=== PATIENT | male | born 1980 | race Hispanic/Latino ===

== ENCOUNTER 2019-06-16 02:07 | Emergency (ER) | payer SELFPAY ==
[2019-06-16] MEDS ORDERED: Famotidine 20 MG TAB ONE (02:29)
[2019-06-16] MEDS ORDERED: predniSONE 20 MG TAB ONE (02:29)
[2019-06-16] MEDS ORDERED: diphenhydrAMINE 25 MG CAP ONE (02:29)
== END 2019-06-16 03:05 | disposition home or self-care (01) ==
LOC: ERS 02:07
DX: L50.0 Allergic urticaria (principal)
CPT/HCPCS: 99282; J7512; Q0163

== ENCOUNTER 2019-06-17 00:57 | Emergency (ER) | payer SELFPAY ==
[2019-06-17] MEDS ORDERED: diphenhydrAMINE 50 MG/ML VIAL ONE (01:22)
[2019-06-17] MEDS ORDERED: Famotidine/PF 20 mg/2ml Vial ONE (01:26)
[2019-06-17] MEDS ORDERED: Famotidine/PF 20 mg/2ml Vial SLOW IVP SCH (01:30)
[2019-06-17] MEDS ORDERED: Dexamethasone 10 MG/ML VIAL ONE (02:09)
[2019-06-17] MEDS ORDERED: Dexamethasone 4 MG TAB ONE (02:12)
== END 2019-06-17 03:45 | disposition home or self-care (01) ==
LOC: ERS 00:57
DX: L50.0 Allergic urticaria (principal)
CPT/HCPCS: 96374; 96375; J1100; J1200; J8540; S0028

== ENCOUNTER 2019-06-18 10:41 | Emergency (ER) | payer SELFPAY ==
[2019-06-18] MEDS ORDERED: Ondansetron PF 4 MG/2 ML Vial ONE ×2 (11:27→11:28)
[2019-06-18] MEDS ORDERED: Morphine 4 MG/ML VIAL ONE (11:27)
[2019-06-18 11:33] LABS: #Lymphocytes 2.5 thou/uL (1.20-3.40); #Monocytes 1.1 thou/uL (0.11-0.59); #Neutrophils 7.7 thou/uL (1.40-6.50); %Basophils 0.3 % (0.0-1.0); %Eosinophils 0.1 % (0.0-10.0); %Lymphocytes 22.3 % (21.0-51.0); %Monocytes 9.2 % (0.0-10.0); Hemoglobin 14.9 g/dL (14.0-18.0); Mean Corpuscular HGB CONC 34.4 g/dL (32.0-36.0); Mean Corpuscular Hemoglobin 30.4 pg (27.0-31.0); Mean Corpuscular Volume 88.3 fL (78.0-98.0); Mean Platelet Volume 6.7 fL (7.4-10.4); Platelet Count 250 thou/uL (130-400); White Blood Cell (WBC) Count 11.3 thou/uL (4.8-10.8)
[2019-06-18 11:37] LABS: Bilirubin Small (Negative); Blood, Urine Small (Negative); Glucose, Urine (Dipstick) Negative (Negative); Leukocyte Negative (Negative); Nitrite Negative (Negative); Protein, Urine (Dipstick) 100 mg/dL (Neg-Trace); Urobilinogen 0.2 mg/dL (Less than 2)
[2019-06-18 11:43] LABS: Clarity CLEAR (Clear)
[2019-06-18 11:45] LABS: Bacteria/HPF 1+ HPF (None Seen); RBC/HPF 0-3 HPF (0-3); Squamous Epithelial 0-3 HPF (0-3); WBC/HPF None Seen HPF (0-3)
[2019-06-18 11:47] LABS: ALT (SGPT) 26 U/L (8-55); AST (SGOT) 13 U/L (5-34); Albumin 4.2 g/dL (3.5-5.0); Alkaline Phosphatase 67 U/L (40-110); Anion Gap 13 mmol/L (10-20); BUN (Urea Nitrogen) 12 mg/dL (8.9-20.6); Bilirubin, Total 0.3 mg/dL (0.2-1.2); Calc. Creatinine Clearance 0 mL/min (70-130); Calcium 8.8 mg/dL (7.8-10.44); Carbon Dioxide 23 mmol/L (22-29); Chloride 104 mmol/L (98-107); Estimated GFR-MDRD Greater than 90; Globulin 2.5 g/dL (2.4-3.5); Glucose 115 mg/dL (70-105); Lipase 16 U/L (8-78); Potassium 3.4 mmol/L (3.5-5.1); Protein, Total 6.7 g/dL (6.0-8.3); Sodium 137 mmol/L (136-145)
--- NOTE | 2019-06-18 11:47 | CT ---
CT OF THE ABDOMEN AND PELVIS WITH IV CONTRAST INDICATION: Lower abdominal pain and vomiting COMPARISON: None FINDINGS: ABDOMEN: Lung bases: Clear Liver: No focal lesion. Gallbladder: Normal appearing. Pancreas: Normal. Adrenal glands: Normal. Spleen: Normal. Kidneys and ureters: Normal. No hydronephrosis. Vasculature: Normal. Lymph nodes:No lymphadenopathy. There are a few shotty appearing lymph nodes seen within the retroper itoneum. Free fluid in abdomen:No free fluid is evident. PELVIS: Small and large bowel: Normal Appendix:Normal Bladder: Decompressed Rectal and perirectal soft tissues:Normal. Reproductive structures: Normal. Free fluid in pelvis: No free fluid is evident. Lymphadenopathy pelvis: No lymphadenopathy is evident. Osseous structures: No acute osseous abnormality. No destructive osteolytic or osteoblastic lesion i s identified. Soft tissues:Normal. IMPRESSION: 1. No acute abnormality.
[2019-06-18] MEDS ORDERED: Lidocaine Viscous Sol 2% 15 ml UD Cup ONE (12:14)
[2019-06-18] MEDS ORDERED: Mag-Al 1200 mg/1200 mg/30 ML UDCUP ONE (12:14)
[2019-06-18] MEDS ORDERED: ISOVUE-370 76%-LOCM 1 ML ONE (12:22)
== END 2019-06-18 13:22 | disposition home or self-care (01) ==
LOC: ERS 10:41
DX: R10.31 Right lower quadrant pain (principal); R11.2 Nausea with vomiting, unspecified
CPT/HCPCS: 74177; 80053; 81003; 81015; 82550; 83690; 85025; 93005; 96361; 96374; 96375; J2270; J2405; Q9966

== ENCOUNTER 2019-08-20 00:18 | Emergency (ER) | payer SELFPAY ==
[2019-08-20] MEDS ORDERED: Ketorolac Tromethamine 30 MG/ML VIAL ONE (01:11)
== END 2019-08-20 01:25 | disposition home or self-care (01) ==
LOC: ERS 00:18
DX: K08.89 Other specified disorders of teeth and supporting structures (principal)
CPT/HCPCS: 96372; 99282; J1885

== ENCOUNTER 2021-02-22 08:24 | Emergency (ER) | payer SELFPAY ==
[2021-02-22] MEDS ORDERED: Acetaminophen 500 MG TAB ONE (08:46)
[2021-02-22] MEDS ORDERED: Dexamethasone 10 MG/ML VIAL ONE (08:47)
[2021-02-22] MEDS ORDERED: Ketorolac Tromethamine 30 MG/ML VIAL ONE (08:47)
[2021-02-22 08:57] LABS: #Lymphocytes 0.8 thou/uL (1.20-3.40); #Monocytes 0.2 thou/uL (0.11-0.59); %Basophils 0.4 % (0.0-1.0); %Lymphocytes 20.5 % (21.0-51.0); %Neutrophils 73.1 % (42.0-75.0); Hemoglobin 15.8 g/dL (14.0-18.0); Mean Corpuscular HGB CONC 35.3 g/dL (32.0-36.0); Mean Corpuscular Hemoglobin 31.3 pg (27.0-31.0); Mean Corpuscular Volume 88.7 fL (78.0-98.0); Mean Platelet Volume 6.7 fL (7.4-10.4); Platelet Count 126 thou/uL (130-400); RBC Distribution Width 12.3 % (11.5-14.5); Red Blood Cell (RBC) Count 5.04 mill/uL (4.70-6.10); White Blood Cell (WBC) Count 4.1 thou/uL (4.8-10.8)
[2021-02-22 09:19] LABS: CK (CPK) 91 U/L (30-200); Lipase 38 U/L (8-78)
[2021-02-22 10:03] LABS: SARS-CoV-2 NAA Rapid Test DETECTED (NotDetected)
[2021-02-22] MEDS ORDERED: Iopamidol-370 76% 500 ML 1 ML ONE (10:18)
[2021-02-22 10:35] LABS: Bacteria/HPF None Seen HPF (None Seen); Bilirubin Negative (Negative); Blood, Urine Trace (Negative); Clarity Clear (Clear); Glucose, Urine (Dipstick) Normal (Negative); Ketone, Urine Negative (Negative); Leukocyte Negative Leu/uL (Negative); Nitrite Negative (Negative); Protein, Urine (Dipstick) 20 mg/dL (Neg-Trace); RBC/HPF 0-3 HPF (0-3); Specific Gravity, Urine 1.011 (1.002-1.036); Squamous Epithelial None Seen HPF (0-3); Urobilinogen Normal mg/dL (Less than 2); WBC/HPF 0-3 HPF (0-3); pH, Urine 6.5 (5.0-9.0)
== END 2021-02-22 11:20 | disposition home or self-care (01) ==
LOC: ERS 08:24
DX: U07.1 COVID-19 (principal); J12.82 Pneumonia due to coronavirus disease 2019
CPT/HCPCS: 0240U; 36415; 71045; 71275; 81003; 81015; 82550; 83605; 83690; 84484; 85025; 85379; 87040; 93005; 96374; 96375; J1100; J1885; Q9967

== ENCOUNTER 2021-02-24 22:15 | Inpatient (IN) | payer SELFPAY ==
[2021-02-24] MEDS ORDERED: Acetaminophen 500 MG TAB ONE (22:22)
[2021-02-24] MEDS ORDERED: Ketorolac Tromethamine 30 MG/ML VIAL ONE (22:56)
[2021-02-24 23:12] LABS: Hemoglobin 14.5 g/dL (14.0-18.0); Mean Corpuscular HGB CONC 34.9 g/dL (32.0-36.0); RBC Distribution Width 12.6 % (11.5-14.5); Red Blood Cell (RBC) Count 4.68 mill/uL (4.70-6.10)
[2021-02-24 23:19] LABS: ALT (SGPT) 51 U/L (8-55); AST (SGOT) 30 U/L (5-34); Albumin 3.7 g/dL (3.5-5.0); Alkaline Phosphatase 62 U/L (40-110); Anion Gap 15 mmol/L (10-20); BUN (Urea Nitrogen) 11 mg/dL (8.9-20.6); Bilirubin, Total 0.5 mg/dL (0.2-1.2); Calc. Creatinine Clearance 0 mL/min (70-130); Carbon Dioxide 23 mmol/L (22-29); Chloride 100 mmol/L (98-107); Globulin 2.5 g/dL (2.4-3.5); Glucose 165 mg/dL (70-105); Potassium 3.8 mmol/L (3.5-5.1); Protein, Total 6.2 g/dL (6.0-8.3); Sodium 134 mmol/L (136-145)
[2021-02-24 23:23] LABS: CKMB 0.3 ng/mL (0-6.6)
[2021-02-24 23:28] LABS: Band 27 % (5-11); Lymphocytes 10 % (21-51); MDiff Complete? YES; Mean Platelet Volume 6.6 fL (7.4-10.4); Monocytes 3 % (0-10); Neutrophil 60 % (42-75); Platelet Count 177 thou/uL (130-400)
[2021-02-25 01:10] LABS: Bilirubin Negative (Negative); Blood, Urine Trace (Negative); Glucose, Urine (Dipstick) Negative (Negative); Ketone, Urine Negative (Negative); Leukocyte Negative (Negative); Nitrite Negative (Negative); Protein, Urine (Dipstick) 30 mg/dL (Neg-Trace); Urobilinogen 0.2 mg/dL (Less than 2)
[2021-02-25 01:11] LABS: Clarity Clear (Clear)
[2021-02-25 01:20] LABS: Bacteria/HPF None Seen HPF (None Seen); RBC/HPF 0-3 HPF (0-3); Squamous Epithelial 0-3 HPF (0-3); WBC/HPF 0-3 HPF (0-3)
[2021-02-25] MEDS ORDERED: Ondansetron ODT 4 MG TAB SL PRN (02:15)
[2021-02-25] MEDS ORDERED: Sodium Chloride 0.9% 1,000 ML IV SCH (02:15)
[2021-02-25] MEDS ORDERED: Ondansetron PF 4 MG/2 ML Vial IVP PRN (02:15)
[2021-02-25 02:18] LABS: Lactic Acid 0.8 mmol/L (0.5-2.2)
[2021-02-25] MEDS ORDERED: HYDROcodone/Acetaminophen 7.5/325 mg Tablet PO PRN (05:34)
[2021-02-25] MEDS: Acetaminophen 500 MG TAB PO PRN ×3 (05:47→19:45)
[2021-02-25] MEDS ORDERED: Guaifenesin DM 100-10/5 ML UDCUP PO PRN (07:31)
[2021-02-25] MEDS: cefTRIAXone\\ROCEPHIN 1 GM in Sodium Chloride 0.9% 100 ML IVPB SCH (07:56)
[2021-02-25] MEDS: Ascorbic Acid 500 mg Chewable Tablet PO SCH (07:56)
[2021-02-25] MEDS: Enoxaparin Sodium 40 MG/0.4 ML SYRINGE SC SCH (07:56)
[2021-02-25] MEDS: Zinc Sulfate 220 MG CAP PO SCH (07:56)
[2021-02-25] MEDS ORDERED: Albuterol 200 PUFF (6.7GM INHALER) INH PRN (08:27)
[2021-02-25] MEDS ORDERED: REMDESIVIR 200 MG in Sodium Chloride 0.9% 250 ML 210 ML IV SCH (08:30)
[2021-02-25] MEDS ORDERED: Azithromycin 500 MG in Sodium Chloride 0.9% 250 ML 250 ML IVPB SCH (09:00)
[2021-02-25 11:40] LABS: Hemoglobin 14.4 g/dL (14.0-18.0); Mean Corpuscular HGB CONC 34.8 g/dL (32.0-36.0); Mean Corpuscular Hemoglobin 31.5 pg (27.0-31.0); Mean Corpuscular Volume 90.5 fL (78.0-98.0); Mean Platelet Volume 6.4 fL (7.4-10.4); Platelet Count 172 thou/uL (130-400); RBC Distribution Width 12.5 % (11.5-14.5); Red Blood Cell (RBC) Count 4.56 mill/uL (4.70-6.10); White Blood Cell (WBC) Count 12.1 thou/uL (4.8-10.8)
[2021-02-25 11:58] LABS: Band 31 % (5-11); Lymphocytes 8 % (21-51); MDiff Complete? YES; Neutrophil 61 % (42-75); Platelet Morphology Comment Appears Adequate; RBC Morphology Normal
[2021-02-26] MEDS: Acetaminophen 500 MG TAB PO PRN ×3 (00:15→21:15)
[2021-02-26 04:02] LABS: #Lymphocytes 0.8 thou/uL (1.20-3.40); #Monocytes 0.2 thou/uL (0.11-0.59); #Neutrophils 11.7 thou/uL (1.40-6.50); %Basophils 0.1 % (0.0-1.0); %Monocytes 1.6 % (0.0-10.0); %Neutrophils 92.3 % (42.0-75.0); Mean Corpuscular HGB CONC 35.1 g/dL (32.0-36.0); Mean Corpuscular Hemoglobin 31.7 pg (27.0-31.0); Mean Corpuscular Volume 90.4 fL (78.0-98.0); Mean Platelet Volume 6.4 fL (7.4-10.4); Platelet Count 202 thou/uL (130-400); RBC Distribution Width 12.5 % (11.5-14.5); Red Blood Cell (RBC) Count 4.42 mill/uL (4.70-6.10); White Blood Cell (WBC) Count 12.7 thou/uL (4.8-10.8)
[2021-02-26 04:20] LABS: Anion Gap 13 mmol/L (10-20); BUN (Urea Nitrogen) 8 mg/dL (8.9-20.6); Calc. Creatinine Clearance 234 mL/min (70-130); Calcium 8.4 mg/dL (7.8-10.44); Carbon Dioxide 24 mmol/L (22-29); Chloride 100 mmol/L (98-107); Glucose 103 mg/dL (70-105); Potassium 3.6 mmol/L (3.5-5.1); Sodium 133 mmol/L (136-145)
[2021-02-26] MEDS: cefTRIAXone\\ROCEPHIN 1 GM in Sodium Chloride 0.9% 100 ML IVPB SCH (07:29)
[2021-02-26] MEDS: Ascorbic Acid 500 mg Chewable Tablet PO SCH (07:31)
[2021-02-26] MEDS: Zinc Sulfate 220 MG CAP PO SCH (07:32)
[2021-02-26] MEDS: Enoxaparin Sodium 40 MG/0.4 ML SYRINGE SC SCH (07:32)
[2021-02-26] MEDS ORDERED: Dexamethasone 4 MG TAB PO SCH (08:00)
[2021-02-26] MEDS: REMDESIVIR 100 MG in Sodium Chloride 0.9% 250 ML 230 ML IV SCH (09:33)
[2021-02-26] MEDS ORDERED: Lorazepam 0.5 MG TAB PO PRN (10:34)
[2021-02-26] MEDS: Azithromycin 500 MG in Sodium Chloride 0.9% 250 ML 250 ML IVPB SCH (13:24)
[2021-02-26] MEDS ORDERED: Ivermectin 3 MG TAB PO SCH (17:45)
[2021-02-26] MEDS: methylPREDNISolone Sod Succ/PF 125 MG in Sodium Chloride 0.9% 250 ML 250 ML IVPB SCH (18:42)
[2021-02-26] MEDS ORDERED: Enoxaparin Sodium 40 MG/0.4 ML SYRINGE SC SCH (21:00)
[2021-02-26] MEDS: Enoxaparin Sodium 60 MG/0.6 ML SYRINGE SC SCH (21:10)
[2021-02-26] MEDS: Colchicine 0.6 MG TAB PO SCH (21:10)
[2021-02-27] MEDS: Acetaminophen 500 MG TAB PO PRN (02:31)
[2021-02-27 04:08] LABS: #Lymphocytes 0.4 thou/uL (1.20-3.40); #Monocytes 0.2 thou/uL (0.11-0.59); #Neutrophils 8.7 thou/uL (1.40-6.50); %Lymphocytes 4.7 % (21.0-51.0); %Monocytes 2.1 % (0.0-10.0); %Neutrophils 93.3 % (42.0-75.0); Hemoglobin 15.4 g/dL (14.0-18.0); Mean Corpuscular HGB CONC 33.7 g/dL (32.0-36.0); Mean Corpuscular Hemoglobin 30.9 pg (27.0-31.0); Mean Corpuscular Volume 91.7 fL (78.0-98.0); Mean Platelet Volume 7.2 fL (7.4-10.4); Platelet Count 283 thou/uL (130-400); RBC Distribution Width 12.6 % (11.5-14.5); Red Blood Cell (RBC) Count 4.96 mill/uL (4.70-6.10); White Blood Cell (WBC) Count 9.4 thou/uL (4.8-10.8)
[2021-02-27 04:29] LABS: Anion Gap 15 mmol/L (10-20); BUN (Urea Nitrogen) 12 mg/dL (8.9-20.6); Calc. Creatinine Clearance 223 mL/min (70-130); Calcium 8.7 mg/dL (7.8-10.44); Carbon Dioxide 24 mmol/L (22-29); Chloride 100 mmol/L (98-107); Glucose 155 mg/dL (70-105); Sodium 135 mmol/L (136-145)
[2021-02-27] MEDS: cefTRIAXone\\ROCEPHIN 1 GM in Sodium Chloride 0.9% 100 ML IVPB SCH (08:00)
[2021-02-27] MEDS: Enoxaparin Sodium 60 MG/0.6 ML SYRINGE SC SCH ×2 (08:00→20:13)
[2021-02-27] MEDS: Ascorbic Acid 500 mg Chewable Tablet PO SCH (08:01)
[2021-02-27] MEDS: Zinc Sulfate 220 MG CAP PO SCH (08:01)
[2021-02-27] MEDS: Colchicine 0.6 MG TAB PO SCH ×2 (09:20→20:14)
[2021-02-27] MEDS: REMDESIVIR 100 MG in Sodium Chloride 0.9% 250 ML 230 ML IV SCH (09:20)
[2021-02-27] MEDS: Azithromycin 500 MG in Sodium Chloride 0.9% 250 ML 250 ML IVPB SCH (11:40)
[2021-02-27] MEDS ORDERED: Ventilator Sedation Protocol 1 EACH FS ONE (17:03)
[2021-02-27] MEDS ORDERED: Propofol 1,000 MG/100 ML VIAL IV ONE (17:16)
[2021-02-27] MEDS ORDERED: Vecuronium 10 MG VIAL ONE (17:17)
[2021-02-27] MEDS ORDERED: Fentanyl BOLUS 250 ML IVPB PRN (17:30)
[2021-02-27] MEDS ORDERED: Propofol BOLUS 1,000 MG/100 ML VIAL IV PRN (17:30)
[2021-02-27] MEDS ORDERED: DISCONTINUE PREVIOUS NARCOTIC PAIN MEDICATIONS AND BENZODIAZEPINES FS SCH (17:30)
[2021-02-27] MEDS ORDERED: Morphine 2 MG/ML VIAL SLOW IVP PRN (17:30)
[2021-02-27] MEDS: Vecuronium 10 MG VIAL IVP PRN ×2 (17:50→20:14)
[2021-02-27 18:10] LABS: Actual Bicarbonate (HCO3a) 23.2 mEq/L (22-28); CO2 Tension 45.5 mmHg (35.0-45.0); Calcium, Ionized (arterial) 1.14 mmol/L (1.12-1.30); Carboxyhemoglobin (COHb) 0.3 gm% (0.0-3.0); Hemoglobin (Hb) 15.5 g/dL (14.0-18.0); Potassium - ABG Lab 3.69 mmol/L (3.70-5.30); pH, Arterial 7.33 (7.35-7.45)
[2021-02-27] MEDS: methylPREDNISolone Sod Succ/PF 125 MG in Sodium Chloride 0.9% 250 ML 250 ML IVPB SCH (18:17)
[2021-02-27] MEDS: Ivermectin 3 MG TAB PO SCH (18:18)
[2021-02-27] MEDS: Lorazepam 2 MG/ML VIAL SLOW IVP PRN ×5 (18:20→23:40)
[2021-02-27 18:32] LABS: O2 Tension (PaO2), arterial 59.5 mmHg (80.0-100.0)
[2021-02-27 18:33] LABS: ALV-art Gradient 454.025 mmHg (0-20); Puncture Site LBA
[2021-02-27] MEDS ORDERED: Sterile Water 10 ML ONE (20:12)
[2021-02-27] MEDS: Propofol 1,000 MG/100 ML VIAL IV PRN ×2 (20:15→23:40)
[2021-02-27] MEDS ORDERED: Dextrose 5% in Water 1,000 ML IV PRN (21:15)
[2021-02-27] MEDS ORDERED: Dextrose 50% Abboject 50 ML SYRINGE IVP PRN (21:15)
[2021-02-27] MEDS: Rocuronium Bromide 10 MG/ML (10ML VIAL) IVP PRN ×2 (21:29→23:40)
[2021-02-27] MEDS: HumaLOG 300 UNITS/3 ML VIAL SC PRN ×2 (21:38→23:57)
[2021-02-28] MEDS: Lorazepam 2 MG/ML VIAL SLOW IVP PRN ×7 (02:33→20:54)
[2021-02-28] MEDS: Propofol 1,000 MG/100 ML VIAL IV PRN ×7 (02:33→20:54)
[2021-02-28] MEDS: Rocuronium Bromide 10 MG/ML (10ML VIAL) IVP PRN ×2 (02:33→03:59)
[2021-02-28 04:40] LABS: Anion Gap 13 mmol/L (10-20); BUN (Urea Nitrogen) 15 mg/dL (8.9-20.6); Calc. Creatinine Clearance 208 mL/min (70-130); Carbon Dioxide 27 mmol/L (22-29); Chloride 104 mmol/L (98-107); Glucose 148 mg/dL (70-105); Potassium 4.5 mmol/L (3.5-5.1); Sodium 139 mmol/L (136-145)
[2021-02-28 07:09] LABS: Actual Bicarbonate (HCO3a) 24.6 mEq/L (22-28); Base Excess (BEa) 0.7 mEq/L (-2.0 to +3.0); CO2 Tension 37.5 mmHg (35.0-45.0); Calcium, Ionized (arterial) 1.16 mmol/L (1.12-1.30); Carboxyhemoglobin (COHb) 0.6 gm% (0.0-3.0); Hemoglobin (Hb) 15.7 g/dL (14.0-18.0); O2 Tension (PaO2), arterial 61.5 mmHg (80.0-100.0); Potassium - ABG Lab 4.33 mmol/L (3.70-5.30); pH, Arterial 7.44 (7.35-7.45)
[2021-02-28 07:30] LABS: Puncture Site LRA
[2021-02-28 07:31] LABS: ALV-art Gradient 319.425 mmHg (0-20)
[2021-02-28] MEDS: cefTRIAXone\\ROCEPHIN 1 GM in Sodium Chloride 0.9% 100 ML IVPB SCH (08:20)
[2021-02-28] MEDS: Vecuronium 10 MG VIAL IVP PRN ×5 (08:20→20:55)
[2021-02-28] MEDS: Enoxaparin Sodium 60 MG/0.6 ML SYRINGE SC SCH ×2 (09:58→20:54)
[2021-02-28] MEDS: Ascorbic Acid 500 mg Chewable Tablet PO SCH (09:59)
[2021-02-28] MEDS: Zinc Sulfate 220 MG CAP PO SCH (09:59)
[2021-02-28] MEDS: REMDESIVIR 100 MG in Sodium Chloride 0.9% 250 ML 230 ML IV SCH (10:00)
[2021-02-28] MEDS: Colchicine 0.6 MG TAB PO SCH (10:02)
[2021-02-28] MEDS ORDERED: Pantoprazole 40 MG GRANULES PACKET PER TUBE SCH (10:15)
[2021-02-28] MEDS: Azithromycin 500 MG in Sodium Chloride 0.9% 250 ML 250 ML IVPB SCH (11:46)
[2021-02-28 11:49] LABS: #Lymphocytes 0.6 thou/uL (1.20-3.40); #Monocytes 0.6 thou/uL (0.11-0.59); #Neutrophils 9.4 thou/uL (1.40-6.50); %Eosinophils 0.2 % (0.0-10.0); %Lymphocytes 5.4 % (21.0-51.0); %Monocytes 5.8 % (0.0-10.0); %Neutrophils 88.6 % (42.0-75.0); Hemoglobin 14.2 g/dL (14.0-18.0); Mean Corpuscular HGB CONC 34.2 g/dL (32.0-36.0); Mean Corpuscular Hemoglobin 31.2 pg (27.0-31.0); Mean Corpuscular Volume 91.1 fL (78.0-98.0); Mean Platelet Volume 6.4 fL (7.4-10.4); Platelet Count 410 thou/uL (130-400); RBC Distribution Width 12.6 % (11.5-14.5); Red Blood Cell (RBC) Count 4.55 mill/uL (4.70-6.10); White Blood Cell (WBC) Count 10.7 thou/uL (4.8-10.8)
[2021-02-28] MEDS ORDERED: Fentanyl CADD 100 ML ONE (13:30)
[2021-02-28] MEDS: HumaLOG 300 UNITS/3 ML VIAL SC PRN ×2 (14:30→17:05)
[2021-02-28] MEDS: Ivermectin 3 MG TAB PO SCH (18:23)
[2021-02-28] MEDS: methylPREDNISolone Sod Succ/PF 125 MG in Sodium Chloride 0.9% 250 ML 250 ML IVPB SCH (18:24)
[2021-03-01] MEDS: HumaLOG 300 UNITS/3 ML VIAL SC PRN (00:05)
[2021-03-01] MEDS: Propofol 1,000 MG/100 ML VIAL IV PRN ×6 (01:09→20:40)
[2021-03-01] MEDS: Vecuronium 10 MG VIAL IVP PRN ×6 (01:09→20:41)
[2021-03-01] MEDS: Lorazepam 2 MG/ML VIAL SLOW IVP PRN ×6 (01:09→20:41)
[2021-03-01 06:05] LABS: #Lymphocytes 0.5 thou/uL (1.20-3.40); #Monocytes 0.5 thou/uL (0.11-0.59); #Neutrophils 5.8 thou/uL (1.40-6.50); %Basophils 0.2 % (0.0-1.0); %Eosinophils 0.3 % (0.0-10.0); %Lymphocytes 7.6 % (21.0-51.0); %Monocytes 7.1 % (0.0-10.0); %Neutrophils 84.9 % (42.0-75.0); Hemoglobin 12.8 g/dL (14.0-18.0); Mean Corpuscular HGB CONC 32.9 g/dL (32.0-36.0); Mean Corpuscular Hemoglobin 29.8 pg (27.0-31.0); Mean Corpuscular Volume 90.6 fL (78.0-98.0); Mean Platelet Volume 6.5 fL (7.4-10.4); Platelet Count 428 thou/uL (130-400); RBC Distribution Width 12.5 % (11.5-14.5); White Blood Cell (WBC) Count 6.8 thou/uL (4.8-10.8)
[2021-03-01 06:19] LABS: Anion Gap 11 mmol/L (10-20); BUN (Urea Nitrogen) 17 mg/dL (8.9-20.6); Calc. Creatinine Clearance 221 mL/min (70-130); Calcium 8.3 mg/dL (7.8-10.44); Carbon Dioxide 26 mmol/L (22-29); Chloride 107 mmol/L (98-107); Glucose 151 mg/dL (70-105); Potassium 4.3 mmol/L (3.5-5.1); Sodium 140 mmol/L (136-145)
[2021-03-01 07:08] LABS: Actual Bicarbonate (HCO3a) 25.6 mEq/L (22-28); Base Excess (BEa) 2.1 mEq/L (-2.0 to +3.0); CO2 Tension 36.8 mmHg (35.0-45.0); Calcium, Ionized (arterial) 1.14 mmol/L (1.12-1.30); Carboxyhemoglobin (COHb) 0.3 gm% (0.0-3.0); Hemoglobin (Hb) 14.6 g/dL (14.0-18.0); O2 Tension (PaO2), arterial 86.5 mmHg (80.0-100.0); pH, Arterial 7.46 (7.35-7.45)
[2021-03-01 07:42] LABS: Puncture Site LRA
[2021-03-01] MEDS: Ascorbic Acid 500 mg Chewable Tablet PO SCH (08:44)
[2021-03-01] MEDS: Colchicine 0.6 MG TAB PO SCH (08:44)
[2021-03-01] MEDS: Pantoprazole 40 MG GRANULES PACKET PER TUBE SCH (08:44)
[2021-03-01] MEDS: cefTRIAXone\\ROCEPHIN 1 GM in Sodium Chloride 0.9% 100 ML IVPB SCH (08:44)
[2021-03-01] MEDS: Zinc Sulfate 220 MG CAP PO SCH (08:44)
[2021-03-01] MEDS: Enoxaparin Sodium 60 MG/0.6 ML SYRINGE SC SCH ×2 (08:45→20:40)
[2021-03-01] MEDS: REMDESIVIR 100 MG in Sodium Chloride 0.9% 250 ML 230 ML IV SCH (10:29)
[2021-03-01] MEDS: methylPREDNISolone Sod Succ/PF 125 MG in Sodium Chloride 0.9% 250 ML 250 ML IVPB SCH (11:19)
[2021-03-01] MEDS: Azithromycin 500 MG in Sodium Chloride 0.9% 250 ML 250 ML IVPB SCH (11:59)
[2021-03-01] MEDS ORDERED: Fentanyl CADD 100 ML ONE (16:13)
[2021-03-01] MEDS: Ivermectin 3 MG TAB PO SCH (18:01)
[2021-03-02] MEDS: Propofol 1,000 MG/100 ML VIAL IV PRN ×7 (00:06→20:45)
[2021-03-02 07:17] LABS: Actual Bicarbonate (HCO3a) 23.4 mEq/L (22-28); Base Excess (BEa) -0.1 mEq/L (-2.0 to +3.0); CO2 Tension 34.5 mmHg (35.0-45.0); Calcium, Ionized (arterial) 1.15 mmol/L (1.12-1.30); Carboxyhemoglobin (COHb) 0.8 gm% (0.0-3.0); Hemoglobin (Hb) 13.6 g/dL (14.0-18.0); pH, Arterial 7.45 (7.35-7.45)
[2021-03-02 07:34] LABS: Puncture Site LRA
[2021-03-02 07:35] LABS: ALV-art Gradient 204.375 mmHg (0-20)
[2021-03-02] MEDS: cefTRIAXone\\ROCEPHIN 1 GM in Sodium Chloride 0.9% 100 ML IVPB SCH (07:37)
[2021-03-02] MEDS: Zinc Sulfate 220 MG CAP PO SCH (07:38)
[2021-03-02] MEDS: Colchicine 0.6 MG TAB PO SCH (07:38)
[2021-03-02] MEDS: Pantoprazole 40 MG GRANULES PACKET PER TUBE SCH (07:38)
[2021-03-02] MEDS: Enoxaparin Sodium 60 MG/0.6 ML SYRINGE SC SCH ×2 (07:38→20:44)
[2021-03-02] MEDS: HumaLOG 300 UNITS/3 ML VIAL SC PRN ×2 (08:00→21:07)
[2021-03-02] MEDS: Fentanyl CADD 100 ML IV SCH (10:04)
[2021-03-02] MEDS: Azithromycin 500 MG in Sodium Chloride 0.9% 250 ML 250 ML IVPB SCH (10:11)
[2021-03-02] MEDS: Rocuronium Bromide 10 MG/ML (10ML VIAL) IVP PRN (10:40)
[2021-03-02] MEDS: Lorazepam 2 MG/ML VIAL SLOW IVP PRN ×2 (11:04→20:45)
[2021-03-02] MEDS ORDERED: Pancrelipase DR 12,000 1 CAP FS PRN (13:30)
[2021-03-02] MEDS ORDERED: Sodium Bicarbonate Tab 325 MG TAB PER TUBE PRN (13:30)
[2021-03-02] MEDS: Ivermectin 3 MG TAB PO SCH (17:19)
[2021-03-02] MEDS: methylPREDNISolone Sod Succ/PF 125 MG in Sodium Chloride 0.9% 250 ML 250 ML IVPB SCH (17:20)
[2021-03-02] MEDS: Vecuronium 10 MG VIAL IVP PRN (20:45)
[2021-03-02] MEDS ORDERED: Fentanyl CADD 100 ML ONE (23:36)
[2021-03-03] MEDS: Vecuronium 10 MG VIAL IVP PRN (00:18)
[2021-03-03] MEDS: Lorazepam 2 MG/ML VIAL SLOW IVP PRN ×2 (00:18→19:19)
[2021-03-03] MEDS: Propofol 1,000 MG/100 ML VIAL IV PRN ×6 (00:18→23:37)
[2021-03-03] MEDS: HumaLOG 300 UNITS/3 ML VIAL SC PRN ×3 (00:31→20:45)
[2021-03-03] MEDS: Fentanyl CADD 100 ML IV SCH ×2 (02:13→19:19)
[2021-03-03 04:07] LABS: #Lymphocytes 0.8 thou/uL (1.20-3.40); #Monocytes 0.5 thou/uL (0.11-0.59); #Neutrophils 9.2 thou/uL (1.40-6.50); %Basophils 0.1 % (0.0-1.0); %Eosinophils 0.2 % (0.0-10.0); %Lymphocytes 7.7 % (21.0-51.0); %Monocytes 4.7 % (0.0-10.0); %Neutrophils 87.3 % (42.0-75.0); Hemoglobin 13.9 g/dL (14.0-18.0); Mean Corpuscular HGB CONC 35.5 g/dL (32.0-36.0); Mean Corpuscular Hemoglobin 31.6 pg (27.0-31.0); Mean Corpuscular Volume 89.1 fL (78.0-98.0); Mean Platelet Volume 6.3 fL (7.4-10.4); Platelet Count 466 thou/uL (130-400); RBC Distribution Width 12.2 % (11.5-14.5); Red Blood Cell (RBC) Count 4.38 mill/uL (4.70-6.10); White Blood Cell (WBC) Count 10.6 thou/uL (4.8-10.8)
[2021-03-03 04:28] LABS: ALT (SGPT) 96 U/L (8-55); AST (SGOT) 64 U/L (5-34); Albumin 2.9 g/dL (3.5-5.0); Alkaline Phosphatase 56 U/L (40-110); Anion Gap 17 mmol/L (10-20); BUN (Urea Nitrogen) 16 mg/dL (8.9-20.6); Bilirubin, Total 0.6 mg/dL (0.2-1.2); Calc. Creatinine Clearance 241 mL/min (70-130); Calcium 8.1 mg/dL (7.8-10.44); Carbon Dioxide 21 mmol/L (22-29); Chloride 104 mmol/L (98-107); Globulin 3.1 g/dL (2.4-3.5); Glucose 148 mg/dL (70-105); Potassium 4.6 mmol/L (3.5-5.1); Sodium 137 mmol/L (136-145)
[2021-03-03 07:16] LABS: Actual Bicarbonate (HCO3a) 23.9 mEq/L (22-28); Base Excess (BEa) -0.1 mEq/L (-2.0 to +3.0); CO2 Tension 37.2 mmHg (35.0-45.0); Calcium, Ionized (arterial) 1.15 mmol/L (1.12-1.30); Potassium - ABG Lab 4.29 mmol/L (3.70-5.30); pH, Arterial 7.43 (7.35-7.45)
[2021-03-03 07:32] LABS: Puncture Site RRA
[2021-03-03] MEDS: cefTRIAXone\\ROCEPHIN 1 GM in Sodium Chloride 0.9% 100 ML IVPB SCH (09:23)
[2021-03-03] MEDS: Zinc Sulfate 220 MG CAP PO SCH (09:23)
[2021-03-03] MEDS: Colchicine 0.6 MG TAB PO SCH (09:23)
[2021-03-03] MEDS: Pantoprazole 40 MG GRANULES PACKET PER TUBE SCH (09:23)
[2021-03-03] MEDS: Enoxaparin Sodium 60 MG/0.6 ML SYRINGE SC SCH ×2 (09:24→19:19)
[2021-03-03] MEDS: Azithromycin 500 MG in Sodium Chloride 0.9% 250 ML 250 ML IVPB SCH (10:33)
[2021-03-03] MEDS: methylPREDNISolone Sod Succ/PF 125 MG in Sodium Chloride 0.9% 250 ML 250 ML IVPB SCH (17:23)
[2021-03-03] MEDS: Ivermectin 3 MG TAB PO SCH (17:24)
[2021-03-04] MEDS: Propofol 1,000 MG/100 ML VIAL IV PRN ×6 (05:12→23:25)
[2021-03-04 07:41] LABS: Actual Bicarbonate (HCO3a) 26.4 mEq/L (22-28); Base Excess (BEa) 2.1 mEq/L (-2.0 to +3.0); CO2 Tension 40.2 mmHg (35.0-45.0); Calcium, Ionized (arterial) 1.18 mmol/L (1.12-1.30); Carboxyhemoglobin (COHb) 0.3 gm% (0.0-3.0); pH, Arterial 7.44 (7.35-7.45)
[2021-03-04 07:53] LABS: Puncture Site RRA
[2021-03-04] MEDS: cefTRIAXone\\ROCEPHIN 1 GM in Sodium Chloride 0.9% 100 ML IVPB SCH (08:43)
[2021-03-04] MEDS: Enoxaparin Sodium 60 MG/0.6 ML SYRINGE SC SCH ×2 (11:22→20:25)
[2021-03-04] MEDS: Colchicine 0.6 MG TAB PO SCH (11:22)
[2021-03-04] MEDS: Pantoprazole 40 MG GRANULES PACKET PER TUBE SCH (11:22)
[2021-03-04] MEDS: Zinc Sulfate 220 MG CAP PO SCH (11:22)
[2021-03-04] MEDS: Fentanyl CADD 100 ML IV SCH ×2 (11:23→23:54)
[2021-03-04] MEDS: HumaLOG 300 UNITS/3 ML VIAL SC PRN ×2 (12:00→20:45)
[2021-03-04] MEDS: Azithromycin 500 MG in Sodium Chloride 0.9% 250 ML 250 ML IVPB SCH (13:42)
[2021-03-04] MEDS: methylPREDNISolone Sod Succ/PF 125 MG in Sodium Chloride 0.9% 250 ML 250 ML IVPB SCH (15:34)
[2021-03-04] MEDS: Ascorbic Acid 500 mg Chewable Tablet PO SCH (17:33)
[2021-03-04] MEDS: Ivermectin 3 MG TAB PO SCH (17:38)
[2021-03-04 18:45] LABS: #Eosinphils 0.1 thou/uL (0.0-0.7); #Lymphocytes 0.7 thou/uL (1.20-3.40); #Monocytes 0.5 thou/uL (0.11-0.59); #Neutrophils 9.1 thou/uL (1.40-6.50); %Basophils 0.2 % (0.0-1.0); %Eosinophils 0.5 % (0.0-10.0); %Lymphocytes 6.9 % (21.0-51.0); %Monocytes 4.6 % (0.0-10.0); %Neutrophils 87.8 % (42.0-75.0); Hemoglobin 14.3 g/dL (14.0-18.0); Mean Corpuscular HGB CONC 34.7 g/dL (32.0-36.0); Mean Corpuscular Hemoglobin 31.2 pg (27.0-31.0); Mean Corpuscular Volume 89.9 fL (78.0-98.0); Mean Platelet Volume 6.3 fL (7.4-10.4); Platelet Count 496 thou/uL (130-400); RBC Distribution Width 12.5 % (11.5-14.5); Red Blood Cell (RBC) Count 4.57 mill/uL (4.70-6.10); White Blood Cell (WBC) Count 10.4 thou/uL (4.8-10.8)
[2021-03-04 19:05] LABS: ALT (SGPT) 97 U/L (8-55); AST (SGOT) 38 U/L (5-34); Alkaline Phosphatase 55 U/L (40-110); Anion Gap 14 mmol/L (10-20); BUN (Urea Nitrogen) 17 mg/dL (8.9-20.6); Bilirubin, Total 0.5 mg/dL (0.2-1.2); CRP (Inflammatory) 0.92 mg/dL (= or < 0.5); Calc. Creatinine Clearance 211 mL/min (70-130); Calcium 8.3 mg/dL (7.8-10.44); Carbon Dioxide 23 mmol/L (22-29); Chloride 103 mmol/L (98-107); Globulin 3.3 g/dL (2.4-3.5); Glucose 139 mg/dL (70-105); Potassium 4.3 mmol/L (3.5-5.1); Protein, Total 6.3 g/dL (6.0-8.3); Sodium 136 mmol/L (136-145)
[2021-03-05] MEDS: Propofol 1,000 MG/100 ML VIAL IV PRN ×7 (02:54→21:05)
[2021-03-05 04:48] LABS: #Lymphocytes 0.8 thou/uL (1.20-3.40); #Monocytes 0.5 thou/uL (0.11-0.59); #Neutrophils 9.5 thou/uL (1.40-6.50); %Basophils 0.1 % (0.0-1.0); %Eosinophils 0.4 % (0.0-10.0); %Lymphocytes 7.2 % (21.0-51.0); %Monocytes 4.5 % (0.0-10.0); %Neutrophils 87.9 % (42.0-75.0); Hemoglobin 14.7 g/dL (14.0-18.0); Mean Corpuscular Hemoglobin 30.6 pg (27.0-31.0); Mean Corpuscular Volume 89.9 fL (78.0-98.0); Mean Platelet Volume 6.3 fL (7.4-10.4); Platelet Count 523 thou/uL (130-400); RBC Distribution Width 12.5 % (11.5-14.5); White Blood Cell (WBC) Count 10.8 thou/uL (4.8-10.8)
[2021-03-05 05:15] LABS: ALT (SGPT) 108 U/L (8-55); AST (SGOT) 46 U/L (5-34); Albumin 3.2 g/dL (3.5-5.0); Alkaline Phosphatase 59 U/L (40-110); Anion Gap 15 mmol/L (10-20); BUN (Urea Nitrogen) 19 mg/dL (8.9-20.6); Bilirubin, Total 0.6 mg/dL (0.2-1.2); Calc. Creatinine Clearance 211 mL/min (70-130); Calcium 8.4 mg/dL (7.8-10.44); Carbon Dioxide 22 mmol/L (22-29); Chloride 101 mmol/L (98-107); Globulin 3.5 g/dL (2.4-3.5); Glucose 160 mg/dL (70-105); Potassium 4.2 mmol/L (3.5-5.1); Protein, Total 6.7 g/dL (6.0-8.3); Sodium 134 mmol/L (136-145)
[2021-03-05] MEDS: HumaLOG 300 UNITS/3 ML VIAL SC PRN ×3 (06:15→16:04)
[2021-03-05] MEDS: cefTRIAXone\\ROCEPHIN 1 GM in Sodium Chloride 0.9% 100 ML IVPB SCH (09:22)
[2021-03-05] MEDS: Enoxaparin Sodium 60 MG/0.6 ML SYRINGE SC SCH ×2 (11:12→21:05)
[2021-03-05] MEDS: Zinc Sulfate 220 MG CAP PO SCH (11:12)
[2021-03-05] MEDS: Pantoprazole 40 MG GRANULES PACKET PER TUBE SCH (11:13)
[2021-03-05] MEDS: Colchicine 0.6 MG TAB PO SCH (11:13)
[2021-03-05] MEDS: Fentanyl CADD 100 ML IV SCH (13:30)
[2021-03-05] MEDS: Ascorbic Acid 500 mg Chewable Tablet PO SCH (17:50)
[2021-03-05] MEDS: methylPREDNISolone Sod Succ/PF 125 MG in Sodium Chloride 0.9% 250 ML 250 ML IVPB SCH (17:50)
[2021-03-06] MEDS: Fentanyl CADD 100 ML IV SCH (01:33)
[2021-03-06] MEDS: Propofol 1,000 MG/100 ML VIAL IV PRN ×2 (03:28→07:06)
[2021-03-06 04:28] LABS: #Lymphocytes 0.7 thou/uL (1.20-3.40); #Monocytes 0.4 thou/uL (0.11-0.59); #Neutrophils 9.5 thou/uL (1.40-6.50); %Basophils 0.1 % (0.0-1.0); %Eosinophils 0.3 % (0.0-10.0); %Lymphocytes 6.3 % (21.0-51.0); %Neutrophils 89.2 % (42.0-75.0); Hemoglobin 14.4 g/dL (14.0-18.0); Mean Corpuscular HGB CONC 35.6 g/dL (32.0-36.0); Mean Corpuscular Hemoglobin 31.8 pg (27.0-31.0); Mean Corpuscular Volume 89.3 fL (78.0-98.0); Mean Platelet Volume 6.4 fL (7.4-10.4); Platelet Count 447 thou/uL (130-400); RBC Distribution Width 12.4 % (11.5-14.5); Red Blood Cell (RBC) Count 4.54 mill/uL (4.70-6.10); White Blood Cell (WBC) Count 10.6 thou/uL (4.8-10.8)
[2021-03-06 04:47] LABS: ALT (SGPT) 100 U/L (8-55); AST (SGOT) 37 U/L (5-34); Alkaline Phosphatase 54 U/L (40-110); Anion Gap 16 mmol/L (10-20); BUN (Urea Nitrogen) 15 mg/dL (8.9-20.6); Bilirubin, Total 0.7 mg/dL (0.2-1.2); Calc. Creatinine Clearance 75 mL/min (70-130); Calcium 8.1 mg/dL (7.8-10.44); Carbon Dioxide 21 mmol/L (22-29); Chloride 102 mmol/L (98-107); Globulin 3.5 g/dL (2.4-3.5); Glucose 151 mg/dL (70-105); Potassium 4.4 mmol/L (3.5-5.1); Protein, Total 6.5 g/dL (6.0-8.3); Sodium 135 mmol/L (136-145)
[2021-03-06 07:24] VITALS: BMI 36.6
[2021-03-06] MEDS: Colchicine 0.6 MG TAB PO SCH (09:29)
[2021-03-06] MEDS: Enoxaparin Sodium 60 MG/0.6 ML SYRINGE SC SCH ×2 (09:29→21:04)
[2021-03-06] MEDS: Pantoprazole 40 MG GRANULES PACKET PER TUBE SCH (09:29)
[2021-03-06] MEDS: Zinc Sulfate 220 MG CAP PO SCH (09:29)
[2021-03-06] MEDS: cefTRIAXone\\ROCEPHIN 1 GM in Sodium Chloride 0.9% 100 ML IVPB SCH (09:29)
[2021-03-06] MEDS: Ascorbic Acid 500 mg Chewable Tablet PO SCH (16:56)
[2021-03-06] MEDS: HumaLOG 300 UNITS/3 ML VIAL SC PRN (17:26)
[2021-03-06] MEDS: methylPREDNISolone Sod Succ/PF 125 MG in Sodium Chloride 0.9% 250 ML 250 ML IVPB SCH (18:48)
[2021-03-07 03:40] LABS: ALT (SGPT) 104 U/L (8-55); AST (SGOT) 26 U/L (5-34); Albumin 3.4 g/dL (3.5-5.0); Alkaline Phosphatase 59 U/L (40-110); Anion Gap 12 mmol/L (10-20); BUN (Urea Nitrogen) 18 mg/dL (8.9-20.6); Calc. Creatinine Clearance 226 mL/min (70-130); Calcium 8.4 mg/dL (7.8-10.44); Carbon Dioxide 24 mmol/L (22-29); Chloride 103 mmol/L (98-107); Globulin 2.6 g/dL (2.4-3.5); Glucose 151 mg/dL (70-105); Potassium 4.5 mmol/L (3.5-5.1); Sodium 134 mmol/L (136-145)
[2021-03-07 04:37] LABS: Band 5 % (5-11); Hemoglobin 15.2 g/dL (14.0-18.0); Lymphocytes 4 % (21-51); MDiff Complete? YES; Mean Corpuscular Hemoglobin 29.8 pg (27.0-31.0); Mean Corpuscular Volume 90.2 fL (78.0-98.0); Mean Platelet Volume 6.4 fL (7.4-10.4); Monocytes 6 % (0-10); Neutrophil 85 % (42-75); Platelet Count 415 thou/uL (130-400); RBC Distribution Width 12.8 % (11.5-14.5); Red Blood Cell (RBC) Count 5.11 mill/uL (4.70-6.10); White Blood Cell (WBC) Count 10.7 thou/uL (4.8-10.8)
[2021-03-07] MEDS: Enoxaparin Sodium 60 MG/0.6 ML SYRINGE SC SCH ×2 (09:59→19:41)
[2021-03-07] MEDS: Colchicine 0.6 MG TAB PO SCH (09:59)
[2021-03-07] MEDS: Pantoprazole 40 MG GRANULES PACKET PER TUBE SCH (10:00)
[2021-03-07] MEDS: Zinc Sulfate 220 MG CAP PO SCH (10:00)
[2021-03-07] MEDS ORDERED: Lorazepam 2 MG/ML VIAL SLOW IVP PRN (10:50)
[2021-03-07] MEDS: HumaLOG 300 UNITS/3 ML VIAL SC PRN (11:05)
[2021-03-07] MEDS: Ascorbic Acid 500 mg Chewable Tablet PO SCH (16:58)
[2021-03-07] MEDS: methylPREDNISolone Sod Succ/PF 125 MG in Sodium Chloride 0.9% 250 ML 250 ML IVPB SCH (16:59)
[2021-03-07] MEDS: Acetaminophen 500 MG TAB PO PRN (20:27)
[2021-03-08] MEDS: Acetaminophen 500 MG TAB PO PRN (02:16)
[2021-03-08 04:30] LABS: Mean Corpuscular HGB CONC 32.8 g/dL (32.0-36.0); Mean Corpuscular Hemoglobin 29.7 pg (27.0-31.0); Mean Corpuscular Volume 90.6 fL (78.0-98.0); Mean Platelet Volume 6.6 fL (7.4-10.4); Platelet Count 385 thou/uL (130-400); RBC Distribution Width 12.8 % (11.5-14.5); Red Blood Cell (RBC) Count 5.06 mill/uL (4.70-6.10); White Blood Cell (WBC) Count 10.7 thou/uL (4.8-10.8)
[2021-03-08 04:46] LABS: Anion Gap 11 mmol/L (10-20); BUN (Urea Nitrogen) 16 mg/dL (8.9-20.6); Calc. Creatinine Clearance 204 mL/min (70-130); Calcium 8.2 mg/dL (7.8-10.44); Carbon Dioxide 28 mmol/L (22-29); Chloride 98 mmol/L (98-107); Glucose 119 mg/dL (70-105); Potassium 4.3 mmol/L (3.5-5.1); Sodium 133 mmol/L (136-145)
[2021-03-08 06:10] LABS: Band 14 % (5-11); Lymphocytes 6 % (21-51); MDiff Complete? YES; Monocytes 5 % (0-10); Neutrophil 75 % (42-75)
[2021-03-08] MEDS: Colchicine 0.6 MG TAB PO SCH (09:20)
[2021-03-08] MEDS: Enoxaparin Sodium 60 MG/0.6 ML SYRINGE SC SCH ×2 (09:20→20:30)
[2021-03-08] MEDS: Zinc Sulfate 220 MG CAP PO SCH (09:20)
[2021-03-08] MEDS: Ascorbic Acid 500 mg Chewable Tablet PO SCH (17:44)
[2021-03-08] MEDS ORDERED: methylPREDNISolone Sod Succ/PF 125 MG/2 ML VIAL IVP SCH (22:00)
[2021-03-09 07:20] LABS: Anion Gap 11 mmol/L (10-20); BUN (Urea Nitrogen) 15 mg/dL (8.9-20.6); Calc. Creatinine Clearance 195 mL/min (70-130); Calcium 8.5 mg/dL (7.8-10.44); Carbon Dioxide 28 mmol/L (22-29); Chloride 99 mmol/L (98-107); Glucose 135 mg/dL (70-105); Potassium 4.7 mmol/L (3.5-5.1); Sodium 133 mmol/L (136-145)
[2021-03-09 08:17] LABS: Band 6 % (5-11); Hemoglobin 15.5 g/dL (14.0-18.0); Lymphocytes 8 % (21-51); MDiff Complete? YES; Mean Corpuscular HGB CONC 32.8 g/dL (32.0-36.0); Mean Corpuscular Volume 91.5 fL (78.0-98.0); Mean Platelet Volume 6.6 fL (7.4-10.4); Monocytes 4 % (0-10); Neutrophil 82 % (42-75); Platelet Count 402 thou/uL (130-400); Red Blood Cell (RBC) Count 5.17 mill/uL (4.70-6.10); White Blood Cell (WBC) Count 8.2 thou/uL (4.8-10.8)
[2021-03-09] MEDS: Zinc Sulfate 220 MG CAP PO SCH (08:59)
[2021-03-09] MEDS: Colchicine 0.6 MG TAB PO SCH (08:59)
[2021-03-09] MEDS: Enoxaparin Sodium 60 MG/0.6 ML SYRINGE SC SCH ×2 (08:59→21:38)
[2021-03-09] MEDS: HumaLOG 300 UNITS/3 ML VIAL SC PRN (11:05)
[2021-03-09] MEDS: Ascorbic Acid 500 mg Chewable Tablet PO SCH (17:34)
[2021-03-10 03:47] LABS: Anion Gap 13 mmol/L (10-20); BUN (Urea Nitrogen) 17 mg/dL (8.9-20.6); Calc. Creatinine Clearance 207 mL/min (70-130); Calcium 8.5 mg/dL (7.8-10.44); Carbon Dioxide 22 mmol/L (22-29); Chloride 104 mmol/L (98-107); Glucose 161 mg/dL (70-105); Sodium 135 mmol/L (136-145)
[2021-03-10 03:55] LABS: Band 16 % (5-11); Hemoglobin 14.9 g/dL (14.0-18.0); Lymphocytes 1 % (21-51); MDiff Complete? YES; Mean Corpuscular HGB CONC 34.6 g/dL (32.0-36.0); Mean Corpuscular Hemoglobin 31.2 pg (27.0-31.0); Mean Corpuscular Volume 90.3 fL (78.0-98.0); Mean Platelet Volume 6.6 fL (7.4-10.4); Monocytes 1 % (0-10); Neutrophil 82 % (42-75); Platelet Count 343 thou/uL (130-400); RBC Distribution Width 13.1 % (11.5-14.5); Red Blood Cell (RBC) Count 4.78 mill/uL (4.70-6.10); White Blood Cell (WBC) Count 8.8 thou/uL (4.8-10.8)
[2021-03-10] MEDS: Enoxaparin Sodium 60 MG/0.6 ML SYRINGE SC SCH (08:33)
[2021-03-10] MEDS: Zinc Sulfate 220 MG CAP PO SCH (08:33)
[2021-03-10] MEDS: Colchicine 0.6 MG TAB PO SCH (08:33)
[2021-03-10] MEDS: HumaLOG 300 UNITS/3 ML VIAL SC PRN (12:15)
[2021-03-10] MEDS ORDERED: predniSONE 20 MG TAB PO SCH (15:00)
[2021-03-10] MEDS: Ascorbic Acid 500 mg Chewable Tablet PO SCH (17:13)
[2021-03-10] MEDS: Apixaban 2.5 MG TAB PO SCH (20:13)
[2021-03-11 07:45] VITALS: TEMP 97.7
[2021-03-11 08:06] VITALS: BP 105/67
[2021-03-11] MEDS: Colchicine 0.6 MG TAB PO SCH (08:07)
[2021-03-11] MEDS: Zinc Sulfate 220 MG CAP PO SCH (08:07)
[2021-03-11] MEDS: Apixaban 2.5 MG TAB PO SCH (08:07)
== END 2021-03-11 15:17 | disposition home or self-care (01) | DRG 870 ==
LOC: ERS 22:15 → T4-B 02-25 00:54 → OBSVTOIN 02-25 08:16 → IMCU/EMU 02-25 14:10 → CCU 02-27 16:58 → IMCU/EMU 03-08 10:27
PROVIDERS: ADMIT Student in an Organized Health Care Education/Training Program; ATTEND Internal Medicine
PROC: XW033E5 Introduction of Remdesivir Anti-infective into Peripheral Vein, Percutaneous Approach, New Technology Group 5 (ICD-10-PCS; principal; 2021-02-25)
PROC: 8E0ZXY6 Isolation (ICD-10-PCS; 2021-02-25)
PROC: 0DH67UZ Insertion of Feeding Device into Stomach, Via Natural or Artificial Opening (ICD-10-PCS; 2021-02-27)
PROC: 5A09357 Assistance with Respiratory Ventilation, Less than 24 Consecutive Hours, Continuous Positive Airway Pressure (ICD-10-PCS; 2021-02-27)
PROC: 5A1955Z Respiratory Ventilation, Greater than 96 Consecutive Hours (ICD-10-PCS; 2021-02-28)
PROC: 0BH18EZ Insertion of Endotracheal Airway into Trachea, Via Natural or Artificial Opening Endoscopic (ICD-10-PCS; 2021-02-28)
DX: A41.89 Other specified sepsis (principal); U07.1 COVID-19; J12.82 Pneumonia due to coronavirus disease 2019; J96.01 Acute respiratory failure with hypoxia; E66.01 Morbid (severe) obesity due to excess calories; E11.65 Type 2 diabetes mellitus with hyperglycemia; I10 Essential (primary) hypertension; T38.0X5A Adverse effect of glucocorticoids and synthetic analogues, initial encounter; Z79.899 Other long term (current) drug therapy; Z68.36 Body mass index [BMI] 36.0-36.9, adult; Z78.1 Physical restraint status
CPT/HCPCS: 36415; 36416; 36600; 71045; 80048; 80053; 81003; 81015; 82553; 82728; 82805; 83605; 85007; 85025; 85027; 85379; 86140; 87040; 87086; 93005; 94002; 94003; 94660; 94760; 96365; 96372; 96374; 96375; G0378; J0456; J0696; J1650; J1815; J1885; J2060; J2704; J2930; J3010; J3262; J3490; J7050; J7512; J8540

== ENCOUNTER 2025-08-02 07:59 | Outpatient (CLI) | payer OTHER | END 2025-08-02 08:00 | disposition home or self-care (01) | LOC: ULT 07:59 | PROVIDERS: ATTEND Nurse Practitioner Family | DX: R74.8 Abnormal levels of other serum enzymes (principal); K76.0 Fatty (change of) liver, not elsewhere classified; R16.0 Hepatomegaly, not elsewhere classified | CPT/HCPCS: 76700 ==